=== PATIENT | female | born 1950 | race Caucasian/White ===

== ENCOUNTER 2020-04-14 17:30 | Emergency (ER) | payer OTHER, BC, SELFPAY ==
--- NOTE | ~2020-04-14 | CT_ITS ---
EXAMINATION: CT cervical spine wo con DATE: 04/14/2020 19:50 INDICATION: Neck pain TECHNIQUE: Computed tomography (CT) of the cervical spine was performed without intravenous contrast. The dose-length product (DLP) was 256.30 mGy-cm. Automated exposure control and iterative reconstruc tion technique were employed. COMPARISON: None FINDINGS: There is no fracture, dislocation, or subluxation. The vertebral body heights and alignment are normal. The odontoid is intact. There is moderate loss of intervertebral disc space height at C6 -7. Moderate to severe multilevel facet and uncovertebral joint osteoarthritis is noted. IMPRESSION: 1. Moderate cervical spondylosis without acute findings. Reviewed, dictated and finalized at location A. WORKER
--- NOTE | ~2020-04-14 | XR_ITS ---
EXAMINATION: XR ribs RT 2V w CXR 2V INDICATION: Right-sided chest pain TECHNIQUE: PA and lateral views of the chest and 3 views of the right ribs were obtained. COMPARISON: 07/24/2016 FINDINGS: The lungs are free of acute opacities. There is no pleural effusion or pneumothorax. Modera te thoracic spondylosis is noted. No displaced rib fracture is identified. IMPRESSION: 1. No acute cardiopulmonary abnormality or evidence of displaced rib fracture. Reviewed, dictated and finalized at location A. [employer]OR [employer]
[2020-04-14 17:35] VITALS: BP 160/90; PULSE 89; RESP 18; TEMP 36.6; O2SAT 99
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
[2020-04-14 20:01] VITALS: BP 151/83; PULSE 69; RESP 18; TEMP 37.3; O2SAT 100; O2SAT 99
== END 2020-04-14 20:36 | disposition home or self-care (01) ==
PROVIDERS: Emergency Provider Emergency Medicine; PCP Family Medicine
DX: S16.1XXA Strain of muscle, fascia and tendon at neck level, initial encounter (principal); S20.211A Contusion of right front wall of thorax, initial encounter; I10 Essential (primary) hypertension; E03.9 Hypothyroidism, unspecified; E78.2 Mixed hyperlipidemia; M47.812 Spondylosis without myelopathy or radiculopathy, cervical region; V49.40XA Driver injured in collision with unspecified motor vehicles in traffic accident, initial encounter
CPT/HCPCS: 71046; 71100; 72125; 99284

== ENCOUNTER 2020-08-23 16:14 | Outpatient (CLI) | payer BC, SELFPAY ==
[2020-08-23 16:29] LABS: Hematocrit 47.4 % (37.0-47.0); Hemoglobin 15.9 g/dL (12.0-15.0); Mean Corpuscular HGB Conc 33.5 g/dl (32-36); Mean Corpuscular Hemoglobin 30.5 pg (26-34); Mean Corpuscular Volume 90.8 fl (80-100); Mean Platelet Volume 9.5 fl (7.4-10.4); Platelet Count Result 230 k/mm3 (150-375); Red Blood Count 5.22 M/mm3 (4.2-5.4); Red Cell Distribution Width 12.2 % (11.5-14.5); White Blood Count 6.9 K/mm3 (4.5-10.0)
[2020-08-23 16:40] LABS: Alanine Aminotransferase 22 U/L (4-35); Albumin Level 4.4 g/dL (3.5-5.1); Alkaline Phosphatase 116 U/L (38-126); Anion Gap 7 mmol/L (8-16); Aspartate Amino Transferase 32 U/L (14-36); Bilirubin,Total 0.5 mg/dL (0.2-1.3); Blood Urea Nitrogen 15 mg/dL (7-17); Calcium 9.5 mg/dL (8.4-10.2); Carbon Dioxide 28 mmol/L (22-30); Chloride 105 mmol/L (98-107); Cholesterol 213 mg/dL (0-200); Estimated Glomerular Filt Rate > 60; Glucose 127 mg/dL (65-105); HDL Direct 49 mg/dL; Potassium 4.1 mmol/L (3.4-5.0); Sodium 140 mmol/L (137-145); Triglycerides 129 mg/dL (<150)
[2020-08-23 16:51] LABS: LDL Cholesterol Direct 125 mg/dL
[2020-08-23 17:10] LABS: Thyroid Stimulating Hormone 0.385 uIU/mL (0.465-4.680)
== END 2020-08-23 16:15 | disposition home or self-care (01) ==
LOC: ANHLAB 16:17
PROVIDERS: PCP Family Medicine; Visit Provider Nurse Practitioner Family
DX: E03.9 Hypothyroidism, unspecified (principal); I10 Essential (primary) hypertension; E78.2 Mixed hyperlipidemia
CPT/HCPCS: 36415; 80053; 80061; 84436; 84443; 85027

== ENCOUNTER 2020-11-22 09:10 | Outpatient (CLI) | payer BC, SELFPAY ==
[2020-11-22 12:32] LABS: Hemoglobin A1C 5.7 % (<5.7)
== END 2020-11-22 09:11 | disposition home or self-care (01) ==
LOC: ANHLAB 09:12
PROVIDERS: PCP Family Medicine; Visit Provider Nurse Practitioner Family
DX: R73.01 Impaired fasting glucose (principal); E03.9 Hypothyroidism, unspecified
CPT/HCPCS: 36415; 83036; 84436; 84443

== ENCOUNTER 2021-10-25 09:21 | Outpatient (CLI) | payer BC, SELFPAY ==
[2021-10-25 09:43] LABS: Hematocrit 46.6 % (37.0-47.0); Hemoglobin 15.6 g/dL (12.0-15.0); Mean Corpuscular HGB Conc 33.5 g/dl (32-36); Mean Corpuscular Hemoglobin 30.2 pg (26-34); Mean Corpuscular Volume 90.3 fl (80-100); Mean Platelet Volume 9.3 fl (7.4-10.4); Platelet Count Result 232 k/mm3 (150-375); Red Blood Count 5.16 M/mm3 (4.2-5.4); Red Cell Distribution Width 12.4 % (11.5-14.5); White Blood Count 6.6 K/mm3 (4.5-10.0)
[2021-10-25 10:08] LABS: Alanine Aminotransferase 23 U/L (6-35); Albumin Level 4.4 g/dL (3.5-5.1); Alkaline Phosphatase 97 U/L (38-126); Anion Gap 13 mmol/L (8-16); Aspartate Amino Transferase 28 U/L (14-36); Bilirubin,Total 0.6 mg/dL (0.2-1.3); Blood Urea Nitrogen 15 mg/dL (7-17); Carbon Dioxide 26 mmol/L (22-30); Chloride 102 mmol/L (98-107); Cholesterol 232 mg/dL (0-200); Estimated Glomerular Filt Rate > 60; Glucose 107 mg/dL (65-110); HDL Direct 50 mg/dL; Potassium 3.9 mmol/L (3.4-5.0); Sodium 141 mmol/L (137-145); Triglycerides 106 mg/dL (<150)
[2021-10-25 10:18] LABS: LDL Cholesterol Direct 128 mg/dL
== END 2021-10-25 09:22 | disposition home or self-care (01) ==
LOC: ANHLAB 09:23
PROVIDERS: PCP Family Medicine; Visit Provider Nurse Practitioner Family
DX: E03.9 Hypothyroidism, unspecified (principal); E78.2 Mixed hyperlipidemia; I10 Essential (primary) hypertension
CPT/HCPCS: 36415; 80053; 80061; 84439; 84443; 85027

== ENCOUNTER → 2021-12-08 10:27 | Outpatient (CLI) | payer BC, SELFPAY ==
--- NOTE | ~2021-12-08 | US_ITS ---
US abdomen complete EXAMINATION: US Abdomen Complete INDICATION: Right upper quadrant pain PROCEDURE: Realtime High Resolution abdomen ultrasound. COMPARISON: No prior studies for comparison FINDINGS: Gallbladder contains sludge. No definite gallstones, gallbladder wall thickening or pericho lecystic fluid. Common bile duct measures 3 mm. Liver echotexture within normal limits without focal mass. Pancreas within normal limits. Pancreati c tail is obscured by bowel gas. Spleen is unremarkeable. Renal echotexture is within normal limits bilaterally without hydronephrosis, contour deforming mass or renal stone. Right kidney measures 10 c m. Left kidney measures 11 cm. Visualized aspects of the aorta and IVC are within normal limits. Portal vein is patent. No sonograph ic Corado's sign indicated by the technologist. IMPRESSION: 1: Gallbladder sludge. Otherwise, unremarkable abdominal ultrasound. Reviewed, dictated and finalized at location B.
== END ==
PROVIDERS: PCP Family Medicine; Visit Provider Nurse Practitioner Family
DX: R10.11 Right upper quadrant pain (principal); K83.9 Disease of biliary tract, unspecified
CPT/HCPCS: 76700

== ENCOUNTER 2021-12-11 08:56 | Outpatient (CLI) | payer BC, SELFPAY ==
[2021-12-11 10:52] LABS: Thyroid Stimulating Hormone 0.214 uIU/mL (0.465-4.680)
== END 2021-12-11 08:57 | disposition home or self-care (01) ==
PROVIDERS: PCP Family Medicine; Visit Provider Nurse Practitioner Family
DX: E03.9 Hypothyroidism, unspecified (principal)
CPT/HCPCS: 36415; 84436; 84443

== ENCOUNTER → 2021-12-20 10:48 | Outpatient (CLI) | payer BC, SELFPAY ==
--- NOTE | ~2021-12-20 | US_ITS ---
EXAMINATION: US carotid duplex BI DATE: 12/20/2021 11:19 INDICATION: Unspecified visual disturbance at the left eye. TECHNIQUE: Grayscale, color Doppler, and pulsed Doppler images of the cervical carotid arteries were obtained. The degree of vessel stenosis is placed in one of the following categories: normal, <50%, 5 0-69%, >=70% but less than near-occlusion, near-occlusion, or total occlusion. Note that percent sten osis relative to normal distal artery lumen diameter is indirectly measured from velocity measurement s as described by Fred, et al. Radiology 2003; 229:340-346. COMPARISON: None. FINDINGS: RIGHT: The right common carotid artery (CCA) peak systolic velocity (PSV) is 134 cm/s. The right internal ca rotid artery (ICA) PSV is 95 cm/s. The right ICA end-diastolic velocity (EDV) is 18 cm/s. The right I CA/CCA PSV ratio is 0.7. Grayscale and color Doppler images yield an estimate of <50% diameter reduct ion from plaque in the ICA. The external carotid artery (ECA) PSV is 95 cm/s. There is antegrade flow in the right vertebral artery. LEFT: The left CCA PSV is 100 cm/s. The left ICA PSV is 99 cm/s. The left ICA EDV is 23 cm/s. The left ICA/ CCA PSV ratio is 1.0. Grayscale and color Doppler images yield an estimate of <50% diameter reduction from plaque in the ICA. The ECA PSV is 110 cm/s. There is antegrade flow in the left vertebral arter y. IMPRESSION: 1. <50% stenosis in the right internal carotid artery. 2. <50% stenosis in the left internal carotid artery. Reviewed, dictated and finalized at location A. K ANALYST
== END ==
PROVIDERS: PCP Family Medicine; Visit Provider Family Medicine
DX: H53.9 Unspecified visual disturbance (principal); I65.23 Occlusion and stenosis of bilateral carotid arteries
CPT/HCPCS: 93880

== ENCOUNTER 2021-12-21 12:28 | Outpatient (CLI) | payer BC, SELFPAY ==
--- NOTE | 2021-12-25 15:58 | WPDHOLTEREM ---
Holter/Event Monitor Holter/Event Monitor Date of procedure: 12/21/21 Holter/Event Procedure: 48 Hr Holter Monitor Indications: Palpitations Conclusion: 1. 48 hour holter monitor on 12/21/21. 2. Underlying rhythm is sinus rhythm. HR range 43-129 bpm; average HR 72 bpm. 3. There are 28 premature supraventricular complexes and 3 supraventricular couplets. There is 1 episode of atrial tachycardia at 214 bpm lasting 5 beats. 4. There are 63 premature ventricular complexes. No ventricular tachycardia. 5. No sinoatrial or atrioventricular blocks. No significant pauses greater than 2 seconds. 6. No symptoms available for correlation.
== END 2021-12-21 12:29 | disposition home or self-care (01) ==
LOC: ANHCARD 12:30
PROVIDERS: PCP Family Medicine; Visit Provider Family Medicine
DX: R00.2 Palpitations (principal); H53.9 Unspecified visual disturbance
CPT/HCPCS: 93225; 93226

== ENCOUNTER 2023-12-16 16:23 | Emergency (ER) | payer BC, SELFPAY ==
[2023-12-16 16:31] VITALS: BP 144/97; PULSE 71; RESP 18; TEMP 36.4; O2SAT 99
[2023-12-16 16:34] VITALS: BP 144/97; PULSE 71; RESP 18; TEMP 36.4; O2SAT 99
--- NOTE | 2023-12-16 16:58 | ED_ITS ---
HPI - URI/Sore Throat General Chief Complaint: Upper Respiratory Infection Stated Complaint: Cough/Congestion Time Seen by Provider: 12/16/23 16:45 Source: patient, RN notes reviewed and old records reviewed Mode of arrival: ambulatory Limitations: no limitations History of Present Illness HPI Narrative: 73 year old female who presents to [facility] care with complaints of cough and cold symptoms for the past 3 weeks with initial chills, Patient reports that she started feeling worse with increase in cough especially at night with fatigue. Patient reports no fevers or present chills, body aches or any ear pain or sore throat.Patient reports no nausea or vomiting or any diarrhea.She denies any shortness of breath with no tachypnea noted SAO2 99% on room air. MD elicited complaint: cough, rhinorrhea, nasal congestion and other (fatigue) Onset (ago): week(s) (inial cough and cold symptoms 3 weks increased symptoms past 3 days) Severity: moderate Able to tolerate fluids by mouth: Yes Treatments prior to arrival: other (Mucinex and Benadryl) Related Data Home Medications Medication Instructions Recorded Confirmed diphenhydramine HCl 25 mg capsule 25 mg PO QHS PRN Allergic Symptoms 11/06/21 12/16/23 (Benadryl) Allergies Allergy/AdvReac Type Severity Reaction Status Date / Time dextromethorphan Allergy Unknown Unknown Verified 12/14/21 14:20 guaifenesin Allergy Unknown Unknown Verified 12/14/21 14:20 phenylephrine Allergy Unknown Unknown Verified 12/14/21 14:20 Sulfa (Sulfonamide Allergy Unknown Unknown Verified 12/14/21 14:20 Antibiotics) Review of Systems Review of Systems: CONSTITUTIONAL: Reports malaise, no present chills, sweats, no known fever. EYES: Denies visual changes, redness, or discharge. ENT: Reports rhinorrhea, congestion, sinus pain, no otalgia and no sore throat. CARDIOVASCULAR: Denies chest pain, palpitations, or edema. RESPIRATORY: Reports cough.? Denies dyspnea. GASTROINTESTINAL: Denies abdominal pain, nausea, vomiting, diarrhea SKIN: Denies rash or itching. MUSCULOSKELETAL: Denies myalgia. NEUROLOGIC: Denies headache. All systems reviewed & are unremarkable except as noted in HPI and below PMFSH Past Medical History Medical History (Updated 12/18/23 @ 10:49 by Lucie Zamudio NP) BMI 32.0-32.9,adult Essential (primary) hypertension Heart palpitations Hypothyroidism (acquired) Mixed hyperlipidemia Visual disturbance Surgical History Surgical History (Updated 12/18/23 @ 10:46 by Lucie Zamudio NP) S/P right knee arthroscopy repair of meniscus S/P tonsillectomy and adenoidectomy Family History Family History Father Hypertension Family history of diabetes mellitus in first degree relative Diabetes mellitus Mother Hypertension Family history of diabetes mellitus in first degree relative Diabetes mellitus Sibling No problems noted. 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 There is no relevant family history pertinent to the presenting complaint Exam Narrative: GENERAL: Well-appearing, well-nourished, and in no acute distress. HEAD: Normocephalic EYES: PERRLA, conjunctivae clear ENT: Nares clear, turbinates edematous and erythematous, clear discharge. Mucous membranes moist. TM pearly hinson with dull light reflex bilaterally; no tragal tenderness. Oropharynx erythematous without lesions. Tonsils not present and throat without exudate, no drooling, no hoarseness, no trismus, uvula midline.post nasal drainage NECK: Supple. No lymphadenopathy CHEST: Clear to auscultation, breath sounds equal. No wheezing, rhonchi, rales, or stridor. No respiratory distress, speaks in full sentences.frequent cough SAO2 99% on room air HEART: Regular rate and rhythm. No murmur heard. SKIN: Warm, dry, no rash. NEURO: Alert and oriented x3. PSYCH: Normal mood and affect Course Course Emergency Course: Patient is aware of diagnosis, understands and agrees to treatment plan.? Anticipatory guidance given.? Patient agrees to follow-up as directed and is aware of reasons to seek care at the emergency department. Portions of this record may have been created with voice recognition software Level of Care: Express Care Visit Vital Signs Vital signs: Vital Signs Temperature 36.4 C 12/16/23 16:31 Pulse Rate 71 12/16/23 16:31 Respiratory Rate 18 12/16/23 16:31 Blood Pressure 144/97 H 12/16/23 16:31 Pulse Oximetry 99 12/16/23 16:31 Oxygen Delivery Room Air 12/16/23 16:31 Temperature 36.4 C 12/16/23 16:34 Pulse Rate 71 12/16/23 16:34 Respiratory Rate 18 12/16/23 16:34 Blood Pressure 144/97 H 12/16/23 16:34 Pulse Oximetry 99 12/16/23 16:34 Oxygen Delivery Room Air 12/16/23 16:34 Reviewed MDM - URI/Sore Throat MDM Narrative Medical decision making narrative: Differential diagnosis considered: Perez virus, strep pharyngitis, allergic rhinitis, upper respiratory tract infection, sinusitis, rhinosinusitis, nasopharyngitis. viral pharyngitis, otitis media, otitis externa, pneumonia, bronchitis, viral cough syndrome, viral syndrome, and influenza.? Exam findings show no acute concerns or changes; patient is non-toxic appearing and is in no distress.? Patient is appropriate for outpatient treatment and follow-up. Differential Diagnosis Differential diagnosis: Likely upper respiratory infection, sinusitis, viral infection, pharyngitis and other (acute cough) Medical Records Attestation: I reviewed the patient's medical records. Lab Data Attestation: I reviewed the patient's lab results. Critical Care Time Critical Care Time Critical Care Time: No Discharge Plan Discharge Clinical Impression: Sinusitis, Cough Patient Disposition: Home, Self-Care Condition: Stable Instructions: Antibiotic Form Additional Instructions: Increase fluids especially juices and water [id number] cough and cold medicine of your choice for your symptoms Cough tablets as directed for cough--do not bite, chew or suck on--swallow whole Zyrtec or Claritin or Janice daily include Coricidin brand decongestant Steroids as directed--take with food heat to the face 20-30 minutes 4-6 times a day for pain Salt water gargles, throat lozenges or throat sprays as desired Antibiotic as directed--finished the medication If your symptoms persist, change or worsen significantly before you can contact your personal physician then please, without delay, go to the emergency department for further evaluation. Follow-up with PCP in 7-10 days or sooner if needed Follow up with PCP soon in regards to your blood pressure which is elevated above threshold for referral. Blood pressure above 120/80 may indicate pre- hypertension. 144/97 Prescriptions: New prednisone 20 mg tablet 20 mg PO BID Qty: 10 0RF amoxicillin-pot clavulanate 875-125 mg tablet 1 tablet PO Q12H Qty: 20 0RF Rx Instructions: take with food recommend taking probiotics while on this medication No Action diphenhydramine HCl [Benadryl] 25 mg capsule 25 mg PO QHS PRN (Reason: Allergic Symptoms) lisinopril-hydrochlorothiazide 20-12.5 mg tablet 1 tablet PO DAILY Qty: 90 0RF levothyroxine 112 mcg tablet 112 mcg PO DAILY Qty: 90 1RF Follow-up/Referrals: Kylah,Wyatt Urena MD [Primary Care Provider] - Stand Alone Forms: Work/School Release IP Time of Disposition: 17:07 Quality Pedro Coma Scale Eyes: Open Verbal: Oriented and Alert Motor: Follows Commands Jelena Coma Total Score: 15
== END 2023-12-16 17:12 | disposition home or self-care (01) ==
PROVIDERS: Emergency Provider Registered Nurse; PCP Family Medicine
DX: J32.9 Chronic sinusitis, unspecified (principal); R05.9 Cough, unspecified; I10 Essential (primary) hypertension; E03.9 Hypothyroidism, unspecified; E78.2 Mixed hyperlipidemia
CPT/HCPCS: 99213; G0463